=== PATIENT | male | born 1975 | race Caucasian/White ===

== ENCOUNTER 2024-05-31 10:09 | Emergency (ER) | payer BC, SELFPAY ==
[2024-05-31 10:25] VITALS: BP 125/81
--- NOTE | 2024-05-31 11:44 | ED.GENMED ---
History of Present Illness
<Nora Howell MD, Resident - Last Filed: 06/01/24 19:37>
General
Chief Complaint: Abdominal Pain
Source: patient
Exam Limitations: none
Time Seen by Provider: 05/31/24 11:17
Nursing documentation reviewed up to this point in time: agreed with
History of Present Illness
History of Present Illness:
48-year-old male with history of sleep apnea, ADHD who presented to the ED with left lower quadrant abdominal pain. Onset was last night after dinner 3 beers. He noticed mild left lower quadrant abdominal pain that steadily worsened, causing
difficulty falling asleep. Pain is described as non-radiating, dull pain that becomes worse (6/10) and sharp with positional changes or with breaths.
He reports being diagnosed with an abdominal hernia, but has had no abdominal surgeries. He has no history of kidney stones. He has had planned weight loss of about 30 pounds in the past 2 months from eating mostly 1 meal a day. Recent travel to
[place] from where he returned 4 days ago.
He reports reduced appetite, but denies nausea/vomiting, diarrhea, fever/chills/sweats, chest pain, SOB, palpitations or urinary symptoms.
Past History
<Nroa Howell MD, Resident - Last Filed: 06/01/24 19:37>
Past History
ED Past Medical History: GERD, Psychiatric (ADHD) and Other (sleep apnea)
ED Past Surgical History: None
Social History
Tobacco: Smoker (rare)
Alcohol: Occasional
Drug: Marijuana (rare)
Personal:
Living: with family
Review of Systems
<Nora Howell MD, Resident - Last Filed: 06/01/24 19:37>
Review of Systems
Allergies reviewed?: Yes
Respiratory: Denies trouble breathing
Cardiac: Denies chest pain, diaphoresis, palpitations or syncope
ABD/GI: Reports abdominal pain; Denies nausea, vomiting or diarrhea
: Denies dysuria, frequency, flank pain or difficulty voiding
Phy Exam
<Nora Howell MD, Resident - Last Filed: 06/01/24 19:37>
General Physical Exam
General Presentation: well appearing and no apparent distress
General Skin: warm and dry
General Habitus: obese
General Mental: alert
Cardiovascular Exam
Cardiovascular Exam: regular rate/rhythm and no murmur
Pulmonary Exam
Pulmonary Exam: lungs clear, no respiratory distress, no rales, no crackles, no rhonchi and no wheezing
Gastrointestinal Exam
Gastrointestinal Exam: normal bowel sounds, soft, non distended, no cva tenderness and other (no peritoneal sounds)
Course
<Nora Howell MD, Resident - Last Filed: 06/01/24 19:37>
Orders/Labs/Results
Orders:
Orders
05/31/24 12:16
Complete Blood Count/With Diff Urgent
Comprehensive Metabolic Panel Urgent
Lipase Urgent
05/31/24 12:21
CT Abd/pelvis W Iv Cont Urgent
Comment:
Reason For Exam: LLQ abd pain
05/31/24 14:55
Amoxicillin 875 mg/Clav 125 mg [Augmentin 875 mg/125 mg] 1 tablet PO NOW STA
05/31/24 15:20
Urinalysis Reflex To Culture Urgent
Date Specimen was Collected: 05/31/24
Time Specimen was Collected: 15:06
Abnormal Lab Results
05/31/24
12:16
WBC 13.0 H 10^3/uL
(4.8-10.8)
RBC 4.64 L 10^6/uL
(4.70-6.10)
MPV 11.3 H fL
(7.4-10.4)
Absolute Neuts (auto) 9.7 H 10^3/uL
(1.4-6.5)
Absolute Monos (auto) 1.1 H 10^3/uL
(0.1-0.6)
Lymphocytes % 15.8 L %
(20.5-51.1)
Carbon Dioxide 21 L mmol/L
(22-30)
Glucose 107 H mg/dl
(70-99)
05/31/24 12:16
05/31/24 12:16
Vital Signs
Initial and Last Documented VS:
Initial Vital Signs
Temp Pulse Resp BP Pulse Ox
99.1 F 102 18 125/81 97
05/31/24 10:25 05/31/24 10:25 05/31/24 10:25 05/31/24 10:25 05/31/24 10:25
Last Documented Vital Signs
Temp Pulse Resp BP Pulse Ox
99.1 F 90 18 100/63 98
05/31/24 10:25 05/31/24 15:00 05/31/24 13:38 05/31/24 15:00 05/31/24 15:00
<Wyatt Dunlap MD - Last Filed: 05/31/24 16:01>
Orders/Labs/Results
Orders:
Orders
05/31/24 12:16
Complete Blood Count/With Diff Urgent
Comprehensive Metabolic Panel Urgent
Lipase Urgent
05/31/24 12:21
CT Abd/pelvis W Iv Cont Urgent
Comment:
Reason For Exam: LLQ abd pain
05/31/24 14:55
Amoxicillin 875 mg/Clav 125 mg [Augmentin 875 mg/125 mg] 1 tablet PO NOW STA
05/31/24 15:20
Urinalysis Reflex To Culture Urgent
Date Specimen was Collected: 05/31/24
Time Specimen was Collected: 15:06
Abnormal Lab Results
05/31/24
12:16
WBC 13.0 H 10^3/uL
(4.8-10.8)
RBC 4.64 L 10^6/uL
(4.70-6.10)
MPV 11.3 H fL
(7.4-10.4)
Absolute Neuts (auto) 9.7 H 10^3/uL
(1.4-6.5)
Absolute Monos (auto) 1.1 H 10^3/uL
(0.1-0.6)
Lymphocytes % 15.8 L %
(20.5-51.1)
Carbon Dioxide 21 L mmol/L
(22-30)
Glucose 107 H mg/dl
(70-99)
05/31/24 12:16
05/31/24 12:16
Vital Signs
Initial and Last Documented VS:
Initial Vital Signs
Temp Pulse Resp BP Pulse Ox
99.1 F 102 18 125/81 97
05/31/24 10:25 05/31/24 10:25 05/31/24 10:25 05/31/24 10:25 05/31/24 10:25
Last Documented Vital Signs
Temp Pulse Resp BP Pulse Ox
99.1 F 90 18 100/63 98
05/31/24 10:25 05/31/24 15:00 05/31/24 13:38 05/31/24 15:00 05/31/24 15:00
<Nora Howell MD, Resident - Last Filed: 06/01/24 19:37>
MDM/Problems Addressed
Differential Diagnosis Includes:
Diverticulitis, constipation, colitis, kidney stone
MDM/Problems Addressed:
Well-appearing patient. LLQ pain with no fever or N/V/D. Otherwise well. Likely diverticulitis. Will check CBC, chemistries, lipase and CT with IV contrast and reassess shortly.
Update: CT abd/pelvis findings suspicious for uncomplicated acute diverticulitis of the proximal sigmoid colon. Will initiate Augmentin. Prompt follow up with PCP. Discussed diet, treatment plan and warning signs for return to ED. Pt is in
agreement.
<Nora Howell MD, Resident - Last Filed: 06/01/24 19:37>
*Critical Care Note
Total Time (30-74mins, 75-104mins- exclusive of procedures): Not Applicable
ED Attending Note
<Nora Howell MD, Resident - Last Filed: 06/01/24 19:37>
-
Portions of this chart may have been created with voice recognition software.� Occasional wrong word or��sound alike� substitutions may have occurred due to the inherent limitations of voice recognition software.
<Wyatt Dunlap MD - Last Filed: 05/31/24 16:01>
ED Attending Note
Patient seen and examined by attending physician: Yes
I performed a history and physical exam of patient and discussed management with resident, I reviewed resident's note and agree with documented findings and plan of care.: Yes
ED Attending Note:
I have seen and evaluated the patient with a [id number] encounter. I have spoken to the resident and involved in the medical history, the physical exam, medical decision making.
Evaluation and management service: agree unless noted differently below.
Results interpretation: agree unless noted differently below.
Focused HPI: 48-year-old male presents for evaluation of left lower quadrant pain for the past 2 days, worse since last night. Denies nausea, vomit, diarrhea. Admits to some mild constipation. Denies urinary symptoms. Denies fevers or chills.
Denies similar symptoms in the past.
Physical exam: Awake alert not in distress. Vital signs within normal limits on my assessment. Abdomen soft, nondistended, tender to palpation left lower quadrant with no peritoneal signs. No masses or hernias appreciated.
Medical Decision Makin-year-old male presents with left lower quadrant abdominal pain. Vitals and exam as above. Labs sent off including a CBC which showed a slight leukocytosis. CMP no clinically significant abnormalities. Urinalysis
negative for infection. CT abdomen pelvis shows acute uncomplicated diverticulitis. Patient is a reasonable candidate for trial of outpatient antibiotics. Follow-up with PCP.
Discharge Plan
Departure
Patient Disposition: Home (Routine Discharge)
Date of Disposition: 05/31/24
Time of Disposition: 15:04
Patient with high blood pressure during this ER visit?: No
Condition: Fair
Discharge Problem:
Acute diverticulitis
Instructions: Low Fiber Diet, Diverticulitis (DC)
Prescriptions:
New
amoxicillin-pot clavulanate 875-125 mg tablet
1 tab PO BID Qty: 19 0RF
No Action
dextroamphetamine-amphetamine [Adderall] 20 MG tablet
20 mg PO MOTUWETHFR
tadalafil [Cialis] 20 MG tablet
20 mg PO PRN PRN (Reason: sex)
famotidine-Ca carb-mag hydrox [Pepcid Complete] 1 EACH tablet,chewable
2 ea PO HS
Referrals:
Nora Howell MD, Resident [Emergency Midlevel Provider] -
UNKNOWN - PT DOES,NOT KNOW [Family Provider] -
Interventions
Interventions:
*Risk Screen - Suicide Last Done: 05/31/24 10:25
*General Assessment Last Done: 05/31/24 10:25
*Neglect/Abuse Screening Last Done: 05/31/24 10:25
*ED COVID-19 Vaccine History Last Done: 05/31/24 10:29
*Nursing Disposition Last Done: 05/31/24 15:24
TH-Eognpo-Sretlzcsqb Assessment Last Done: 05/31/24 13:39
Discharge Date and Time
Discharge Date/Time: 05/31/24 15:25
Print Language: MAORI
[2024-05-31 12:05] VITALS: BMI 56.0
[2024-05-31 12:15] VITALS: BP 113/73
[2024-05-31 12:26] LABS: % Basophils 0.7 % (0-2); % Eosinophils 0.3 % (0-6); % Immature Granulocytes 0.3 % (0-0.5); % Lymphocytes 15.8 % (20.5-51.1); % Monocytes 8.5 % (1.7-9.3); % Neutrophils 74.4 % (42.2-75.2); Absolute Basophils 0.1 10^3/uL (0-0.2); Absolute Lymphocytes 2.1 10^3/uL (1.2-3.4); Absolute Monocytes 1.1 10^3/uL (0.1-0.6); Absolute Neutrophils 9.7 10^3/uL (1.4-6.5); Hematocrit 40.6 % (39.0-52.0); Hemoglobin 14.2 g/dL (13.0-18.0); Mean Corpuscular Hgb 30.6 pg (27.0-31.0); Mean Corpuscular Volume 87.5 fL (80.0-94.0); Mean Platelet Volume 11.3 fL (7.4-10.4); Nucleated Red Blood Cells % 0 % (-); Platelet Count 198 10^3/uL (130-400); Red Blood Cell Count 4.64 10^6/uL (4.70-6.10); Red Cell Dist. Width 12.6 % (11.5-14.5)
[2024-05-31 13:00] LABS: ALT (SGPT) 33 U/L (0-50); AST (SGOT) 25 U/L (17-59); Albumin 4.3 g/dl (3.5-5.0); Alkaline Phosphatase 66 U/L (38-126); Blood Urea Nitrogen 13 mg/dl (9-20); Calcium 9.8 mg/dl (8.4-10.2); Carbon Dioxide 21 mmol/L (22-30); Chloride 103 mmol/L (98-107); Estimated Creatinine Clearance > 125 ml/min; Glucose 107 mg/dl (70-99); Lipase 85 U/L (23-300); Potassium 4.4 mmol/L (3.5-5.1); Sodium 139 mmol/L (135-145); Total Bilirubin 0.9 mg/dl (0.2-1.3); Total Protein 6.9 g/dl (6.3-8.2); eGFR > 60.00
[2024-05-31 13:05] VITALS: BP 119/64
[2024-05-31 14:00] VITALS: BP 112/59
[2024-05-31 15:00] VITALS: BP 100/63
[2024-05-31] MEDS: AUGMENTIN 875 MG/125 MG 1 TABLET PO (15:19)
[2024-05-31 15:32] LABS: Urine Albumin Negative (Neg - Trace); Urine Bilirubin Negative (Negative); Urine Character Clear (Clear); Urine Color Yellow; Urine Glucose Negative (Negative); Urine Ketone Negative (Negative); Urine Leukocyte Negative (Negative); Urine Nitrite Negative (Negative); Urine Occult Blood Negative (Negative); Urine Specific Gravity 1.005 (<1.030); Urine Urobilinogen Negative (Neg - 1+)
== END 2024-05-31 15:25 | disposition home or self-care (01) ==
LOC: EMR 10:09
PROVIDERS: EMERGENCY PHYSICIAN Emergency Medicine
DX: K57.32 Diverticulitis of large intestine without perforation or abscess without bleeding (principal); K59.00 Constipation, unspecified; K21.9 Gastro-esophageal reflux disease without esophagitis; G47.30 Sleep apnea, unspecified; K46.9 Unspecified abdominal hernia without obstruction or gangrene; F90.9 Attention-deficit hyperactivity disorder, unspecified type; F17.200 Nicotine dependence, unspecified, uncomplicated
CPT/HCPCS: 99285; 74177; 80053; 81003; 83690; 85025; Q9967

== ENCOUNTER 2024-08-28 06:45 | Day surgery (SDC) | payer BC, SELFPAY ==
[2024-08-28 13:16] VITALS: BP 124/76
[2024-08-28 13:24] VITALS: BMI 55.7
[2024-08-28 14:45] VITALS: BP 113/68
[2024-08-28 15:00] VITALS: BP 148/86
[2024-08-28 15:10] VITALS: BP 132/63
== END 2024-08-28 15:25 | disposition home or self-care (01) ==
LOC: SDS 06:45
PROVIDERS: ATTENDING PHYSICIAN Surgery
DX: Z12.11 Encounter for screening for malignant neoplasm of colon (principal)
CPT/HCPCS: G0121